=== PATIENT | male | born 1950 | race Two or more races ===

== ENCOUNTER 2024-12-29 13:26 | Emergency (ER) | payer MEDICARE, SELFPAY ==
[2024-12-29 13:27] VITALS: BMI 23.3
[2024-12-29 14:09] VITALS: BP 135/67; PULSE 64; RESP 16; TEMP 36.8; O2SAT 97
--- NOTE | 2024-12-29 14:14 | XR_ITS ---
Examination: Thoracic spine 3 views TECHNIQUE: AP lateral coned lateral upper dorsal spine 3 views Date and time: December 29, 2024 1440 hours INDICATIONS: Patient fell today with injury to the upper back, upper back pain. FINDINGS: Severe osteopenia. No acute thoracic fracture Mild to moderate diffuse thoracic disc narrowing IMPRESSION: No acute thoracic fracture
--- NOTE | 2024-12-29 14:14 | XR_ITS ---
Examination: Bilateral ribs 8 views TECHNIQUE: Right and left AP, right and left RPO, right and left LPO, right and left coned lower AP ribs total 8 views Date and time: December 29, 2024 1440 hours INDICATIONS: Patient fell today with injury to the chest, bilateral rib pain. FINDINGS: No pneumothoraces Prominent osteopenia Acute fracture right seventh rib anteriorly without displacement IMPRESSION: No pneumothorax pulmonary contusion or hemothorax Acute nondisplaced fracture right seventh rib anteriorly
--- NOTE | 2024-12-29 15:25 | PD.EDFALL ---
ED Fall Injury RME/HPI General Chief Complaint: Extremity Injury, Upper Stated Complaint: rib pain Time Seen by Provider: 12/29/24 13:38 Arrival date/time: 12/29/24 13:26 This is a case of 74-year-old male with no medical history came in in the emergency room due to right posterior rib pain and back pain 2 days status post fall on a ladder approximately 4 feet tall denies any head neck chest or abdominal injury denies loss of consciousness denies taking any blood thinner denies any numbness weakness or tingling sensation patient denies shoulder pain at the time of exam Limitations: no limitations Related Data Previous Rx's ?Medication ?Instructions ?Recorded tramadol 50 mg tablet 50 mg PO Q8H PRN pain #10 tabs 12/29/24 Allergies Allergy/AdvReac Type Severity Reaction Status Date / Time acetaminophen Allergy Unknown Unverified 12/29/24 13:30 Review of Systems Review of Systems Systems Reviewed: All systems reviewed, normal except as documented Constitutional Constitutional: Reports system reviewed and no additional complaints, except as documented and Reports as per HPI Cardiovascular Cardiovascular: Reports system reviewed and no additional complaints, except as documented and Reports as per HPI Respiratory Respiratory: Reports system reviewed and no additional complaints, except as documented and Reports as per HPI Gastrointestinal Gastrointestinal: Reports system reviewed and no additional complaints, except as documented and Reports as per HPI Musculoskeletal Musculoskeletal: Reports system reviewed and no additional complaints, except as documented, Reports as per HPI, Reports back pain and Reports other (Rib pain) Neurologic Neurologic: Reports system reviewed and no additional complaints, except as documented and Reports as per HPI Past Medical History Social History SMOKING STATUS: Never smoker ED Exam General Limitations: Present no limitations General appearance: Present alert, in no apparent distress and other (Patient is awake alert oriented not in distress nontoxic looking well-hydrated well-nourished) Head Head exam: Present atraumatic, normocephalic and normal inspection Eye Eye exam: Present normal appearance, PERRL and EOMI ENT ENT exam: Present normal exam, normal oropharynx and mucous membranes moist Neck Neck exam: Present normal inspection, full ROM, trachea midline and other (ROM intact neurovascular intact); Absent tenderness, meningismus, lymphadenopathy or thyromegaly Chest Chest inspection: Present normal inspection, symmetric chest wall rise and other (Mild tenderness on the right posterior anterior rib no crepitation no deformity no palpable rib fracture no subcutaneous emphysema ROM intact neurovascular intact) Respiratory Respiratory exam: Present normal lung sounds bilaterally; Absent respiratory distress, wheezes, stridor, accessory muscle use or prolonged expiratory phase Cardiovascular Cardiovascular exam: Present regular rate, normal rhythm and normal heart sounds; Absent bradycardia, tachycardia, irregular rhythm, systolic murmur or diastolic murmur Abdominal Exam Abdominal exam: Present soft and normal bowel sounds; Absent distention, tenderness, guarding, rebound, rigidity, diminished bowel sounds, hyperactive bowel sounds, hypoactive bowel sounds, organomegaly or trauma Extremities Exam Extremities exam: Present normal inspection and full ROM Expanded Upper Extremity Exam Shoulder exam: Present normal inspection and full ROM; Absent tenderness or swelling Arm exam: Present normal inspection and full ROM; Absent tenderness or swelling Elbow exam: Present normal inspection and full ROM; Absent tenderness or swelling Forearm/Wrist exam: Present normal inspection and full ROM; Absent tenderness or swelling Hand exam: Present normal inspection and full ROM; Absent tenderness or swelling Back Exam Back exam: Present normal inspection, full ROM and tenderness (Mild tenderness on the thoracic area no crepitation no deformity no redness no swelling ROM intact neurovascular intact); Absent CVA tenderness (R), CVA tenderness (L), muscle spasm, paraspinal tenderness, vertebral tenderness, rashes, sciatic notch tenderness (R), sciatic notch tenderness (L), straight leg raise (R) or straight leg raise (L) Neurological Exam Neurological exam: Present alert, oriented X3, CN II-XII intact, normal gait, reflexes normal and other (Awake alert oriented x 4 no focal deficit GCS 15/15 memory intact no slurring of speech no facial droop motor or sensory reflex were all normal in all extremities negative Babinski); Absent motor sensory deficit Psychiatric Psychiatric exam: Present normal affect and normal mood Skin Skin exam: Present warm, dry, intact and normal color Course Quality Measures none Orders Category Date Time Status XR ribs BI 3V Stat Exams 12/29/24 14:14 Completed XR thoracic spine 3V Stat Exams 12/29/24 14:14 Completed HYDROcodone*/APAP 5/325 [[place] 5/325] Med 12/29/24 15:22 Discontinued 1 tab PO X1 ONE Vital Signs Vital signs: Vital Signs Temperature 98.3 F 12/29/24 14:09 Pulse Rate 64 12/29/24 14:09 Respiratory Rate 16 12/29/24 14:09 Blood Pressure 135/67 H 12/29/24 14:09 Pulse Oximetry (%) 97 12/29/24 14:09 Oxygen Delivery Method Room Air 12/29/24 14:09 Oxygen saturation is 97% in room air Fall MDM Narrative MDM Narrative:: This is a case of 74-year-old male with no medical history came in in the emergency room due to right posterior rib pain and back pain 2 days status post fall on a ladder approximately 4 feet tall denies any head neck chest or abdominal injury denies loss of consciousness denies taking any blood thinner denies any numbness weakness or tingling sensation patient denies shoulder pain at the time of exam physical examination patient is awake alert oriented x 4 not in distress nontoxic looking neurological exam is normal awake alert oriented x 4 no focal deficit GCS 15/15 steady gait patient noted to have moderate tenderness on the right posterior ribs going to the right anterior rib no crepitation no deformity no contusion no hematoma no palpable rib fracture no subcutaneous emphysema patient also noted to have mild to moderate tenderness in thoracic area no crepitation no deformity no redness no swelling no paravertebral no paraspinal tenderness no CVA tenderness steady gait negative straight leg exam the rest of the physical examination is normal patient x-ray on the mid back were normal patient sustained a acute nondisplaced fracture of the seventh rib anteriorly at this point patient will be treated as rib fracture I discussed with the daughter and the patient regarding patient allergy patient and the daughter denies allergy to Tylenol thus the patient was given [place] for pain after 15 minutes I reassessed the patient no allergic reaction noted patient will be given tramadol as needed for pain patient was also given incentive spirometer for good breathing exercises they were advised to follow-up with PCP to be referred to Ortho for rib fracture return to the emergency room for any worsening persistent or any emergent concern Patient was discharged with comfortable condition walking with stable gait. Patient verbalized no further complains explained diagnosis and answered patient question. Patient is comfortable with the proposed management plan including the need to follow up with his/her primary care physician and any specialist if applicable Discussed patient for any urgent condition or worsening sx, He/She needed to go to emergency room immediately or call 911. Patient acknowledge the responsibility to follow up as instructed and to monitor her/his symptoms. For any persistence of the symptoms for more than 3-5 days return precaution advised. Discussed the result of the test and was given printed discharge instruction Patient data External records reviewed:: [facility] previous records Clinical information provided by:: patient and family Social determinants that could affect healthcare access:: none Patient has the following chronic illnesses:: None How is presenting disease/condition affected by chronic disease/condition?: no chronic disease Evaluation data The following diagnostics were reviewed and interpreted by me:: radiology exam(s) Lab and/or radiology exams considered but not ordered:: Reviewed Interpretation Summary: Reviewed Medications / Prescriptions Medications or Prescriptions considered but not ordered:: Given Medication administrations:: Medication Administration History Discontinued Medications Hydrocodone Bitart/Acetaminophen (Hydrocodone/[place] 5/325 Tablet) 1 tab PO X1 ONE Stop: 12/29/24 15:23 Given Consultations Consultation(s) initiated? (list below): No Diagnosis Fall Differential Diagnosis: other (Rib fracture) Most likely diagnosis given after review of the tests above:: Rib fracture Admission Indicated Admission indicated?: not indicated Explain why admission is indicated or not indicated:: Not indicated Admission Request Was there a request for admission?: No Admission Attestation Admission request attestation: Not indicated Disposition Plan Disposition Plan: Discharge Discharge Attestation Discharge Attestation: The patient and all family members were given an opportunity to ask questions and understood the discharge instructions. Discharge instructions specifically effects, indications for sooner follow up or return to the emergency department, and the expected course of current diagnosis. Patient condition: Stable Discharge Plan Plan Patient Disposition: HOME (Self Care) Patient condition on transfer: Stable Prescriptions/Referrals Prescriptions/Med Rec: New tramadol 50 mg tablet 50 mg PO Q8H MDD max 4 tabs per day PRN (Reason: pain) Qty: 10 0RF Referrals: Mundo Nick MD [Primary Care Provider, Pediatrics] - In 1 week Problem List Clinical Impression: Fall, Sprain of thoracic region, Closed rib fracture Patient/Caregiver Discharge Instructions Education Materials: Rib Fracture (Broken Rib), Fall Prevention Assessing Risk, ED Back Sprain/Strain, ED Rib Fracture Additional Instructions: Follow-up with your primary care physician in 2 days for reevaluation and to be referred to orthopedic surgeon for further evaluation and treatment up-to-date fracture recurrence persistent worsening symptoms or any emergent concerns such as shortness of breath chest pain call 911 or go to the nearest emergency room yes incentive spirometer for good breathing exercise and take tramadol as needed for pain ice pack every 2 hours for 30 minutes for 24 hours then alternate with warm compresses advised Print Language: Slovak Stand Alone Forms: Ling Award Info., Patient Portal Info Letter PA/CARBON PASTE MIXER OPERATOR Supervising Physician PA/CARBON PASTE MIXER OPERATOR Supervising Physician: Dr. Moreno
--- NOTE | 2024-12-29 16:42 | PC.LAC ---
Patient confirmed allergy to Tylenol, states he had allergic reaction 20 yrs ago and never taken since. Provider Aram made aware, cancel PO [place] order.
== END 2024-12-29 17:05 | disposition home or self-care (01) ==
PROVIDERS: Emergency Provider Emergency Medicine; PCP Pediatrics
DX: S22.39XA Fracture of one rib, unspecified side, initial encounter for closed fracture (principal); S23.3XXA Sprain of ligaments of thoracic spine, initial encounter; W11.XXXA Fall on and from ladder, initial encounter
CPT/HCPCS: 71110; 72072; 99283

== ENCOUNTER → 2025-01-02 | Outpatient (CLI) | payer MEDICARE, SELFPAY ==
--- NOTE | 2025-01-02 10:39 | XR_ITS ---
Examination: PA lateral chest 2 views TECHNIQUE: Upright PA lateral chest 2 views Date and time: January 02, 2025 10:40 AM, comparison 12/29/2024 INDICATIONS: Difficulty breathing chest pain after fall 12/29/2024, acute fracture right seventh rib anteriorly and rib series 12/29/2024 FINDINGS: Small right apical pneumothorax, 10-15% Nondisplaced fracture right fifth and seventh ribs Normal heart size No hemothorax IMPRESSION: Small right pneumothorax, recommend 1 day follow-up to document stability of this pneumothorax Nondisplaced fractures right fifth and seventh ribs
== END | disposition home or self-care (01) ==
DX: S22.31XA Fracture of one rib, right side, initial encounter for closed fracture (principal); W19.XXXA Unspecified fall, initial encounter; J93.9 Pneumothorax, unspecified
CPT/HCPCS: 71046

== ENCOUNTER 2025-01-07 10:18 | Emergency (ER) | payer MEDICARE, SELFPAY ==
[2025-01-07 10:38] VITALS: BP 124/68; PULSE 64; RESP 16; TEMP 37; O2SAT 97
--- NOTE | 2025-01-07 10:48 | XR_ITS ---
Examination: PA lateral chest 2 views TECHNIQUE: Upright PA lateral chest 2 views Date and time: January 07, 2025 1234 hours, comparison 01/02/2025 INDICATIONS: Right apical pneumothorax 10-15% fracture right fifth rib and seventh ribs on chest examination 01/02/2025 FINDINGS: Normal heart size. No current pneumothorax No hemothorax IMPRESSION: No current pneumothorax
--- NOTE | 2025-01-07 10:48 | EKG_ITS ---
[facility] Test Date: 2025-01-07 Pat Name: PRESTON BOWEN Department: Room: - Gender: Male [place]: : 1950 Requested By: Brad Blas (CHEMICAL PLANT MANAGER) Order Number: [id number] Reading MD: Brad Blas (CHEMICAL PLANT MANAGER) Measurements Intervals [place] Rate: 65 P: 23 RI: 190 QRS: -62 QRSD: 85 T: 47 QT: 411 QTc: 429 Interpretive Statements SINUS RHYTHM PATTERN CONSISTENT WITH PULMONARY DISEASE LEFT ANTERIOR FASCICULAR BLOCK [QRS AXIS <= -45, QR IN I, RS IN II] No previous ECG available for comparison /[id number]/[id number].pdf
--- NOTE | 2025-01-07 10:49 | PD.EDRME ---
Rapid Medical Screening Exam RME Arrival date/time: 01/07/25 10:18 75-year-old male with recent diagnosis of pneumothorax presents to the ER for complaint of shortness of breath Chief Complaint: General Adult/Misc Complain Vital signs: Vital Signs Temperature 98.6 F 01/07/25 10:38 Pulse Rate 64 01/07/25 10:38 Respiratory Rate 16 01/07/25 10:38 Blood Pressure 124/68 01/07/25 10:38 Pulse Oximetry (%) 97 01/07/25 10:38 Oxygen Delivery Method Room Air 01/07/25 10:38
[2025-01-07 11:36] LABS: Basophils # (Auto) 0.1 Thou/mm3 (0.0-0.2); Basophils % (Auto) 1 % (0-2.5); Eosinophils # (Auto) 0.4 Thou/mm3 (0.0-0.5); Eosinophils % (Auto) 4 % (0-10); Hematocrit 40.5 % (41.0-53.0); Hemoglobin 13.8 g/dL (13.5-16.0); Immature Granulocytes Auto 0.04 Thou/mm3 (0.00-0.00); Lymphocytes # (Auto) 1.3 Thou/mm3 (1.0-4.8); Lymphocytes % (Auto) 14 % (10-50); Mean Corpuscular HGB Conc 34.1 g/dl (31.0-37.0); Mean Corpuscular Hemoglobin 31.0 pg (25.0-35.0); Mean Corpuscular Volume 91 fL (80-100); Monocytes # (Auto) 0.8 Thou/mm3 (0.0-0.8); Monocytes % (Auto) 8 % (0-12); Neutrophils # (Auto) 6.8 Thou/mm3 (1.8-7.7); Neutrophils % (Auto) 73 % (37-80); Nucleated Red Blood Cell # 0.00 Thou/mm3 (0.00-0.00); Nucleated Red Blood Cell % 0 /100 WBC (0); Platelet Count 203 Thou/mm3 (140-440); RDW Standard Deviation 40.8 fL (35.1-43.9); Red Blood Count 4.45 Miln/mm3 (4.50-5.90); White Blood Count 9.4 Thou/mm3 (3.8-10.6)
[2025-01-07 11:57] LABS: Alanine Aminotransferase 13 U/L (10-49); Albumin, Serum 4.2 gm/dL (3.4-4.8); Albumin/Globulin Ratio 1.4 (1.2-2.2); Alkaline Phosphatase 104 U/L (46-116); Anion Gap 7 (7-16); Aspartate Amino Transferase 14 U/L (0-34); BUN/Creatinine Ratio 12 Ratio (12-20); Bilirubin,Total 0.9 mg/dL (0.3-1.2); Blood Urea Nitrogen 14 mg/dL (9-23); Calcium 9.8 mg/dL (8.3-10.6); Calcium (Corrected) 9.8 mg/dL (8.5-10.1); Carbon Dioxide 28.9 mMol/L (20.0-31.0); Chloride 100 mMol/L (98-107); Creatinine (Component) 1.2 mg/dL (0.6-1.3); Estimated Creatinine Clearance 44.7 mL/min (>60); Globulin 2.9 gm/dL (2.3-3.5); Osmolality,Calculated 292 (275-295); Potassium 4.6 mMol/L (3.4-5.1); Sodium 136 mMol/L (136-145); Total Protein 7.1 gm/dL (5.7-8.2); Troponin I < 0.020 ng/mL (0.0-0.045); eGFR > 60 See Note
[2025-01-07 11:59] LABS: Glucose 466 mg/dL (74-106)
--- NOTE | 2025-01-07 15:29 | EDNOTE_ITS ---
ED General RME/HPI General Chief complaint: General Adult/Misc Complain Stated complaint: SENT BY PCP FOR SCAN OF LUNGS Time Seen by Provider: 01/07/25 14:39 Arrival date/time: 01/07/25 10:18 RME / HPI RME / HPI narrative: 75-year-old male patient with significant history of diabetes mellitus, currently refusing to take insulin or p.o. diabetic medication because he is taking care of his diabetic with herbal medications, was sent to us by PCP for reevaluation regarding possible pneumothorax. Patient sustained a ground-level fall about 8 days ago came here 5 days ago and was noted to have a small pneumothorax and nondisplaced fracture of the 5th and 7th rib. Currently patient is not having any symptoms, except for tenderness to the right posterior rib cage on palpation. Denies any shortness of breath denies any fever denies any cough denies any vomiting denies any other complaints or medications taken prior to ER visit. Patient told me that before coming to the emergency room he ate 6 tortillas. Related Data Previous Rx's ?Medication ?Instructions ?Recorded tramadol 50 mg tablet 50 mg PO Q8H PRN pain #10 ta bs 12/29/24 Allergies Allergy/AdvReac Type Severity Reaction Status Date / Time acetaminophen Allergy Unknown Verified 01/07/25 10:21 Review of Systems Review of Systems Narrative Review of Systems: Review of system reviewed and within normal limits except mentioned in HPI ED Exam Narrative Physical exam: VITAL SIGNS: Reviewed. GENERAL APPEARANCE: Alert and interactive, follows commands, no acute distress, HEAD AND FACE: Non-traumatic. ENT: PERRL, pink conjunctivitis, eyelid no trauma, Mucous membrane moist. NECK: Supple, nontender, no nuchal rigidity. CHEST: Posterior rib cage tenderness, no crepitus, no paradoxical movement, no retractions. LUNGS: Clear, well ventilated, symmetric, no rales, no wheezing, no ronchi, no stridor, good breath sounds bilaterally. HEART: Regular rate, regular rhythm, no murmur, no gallops. ABDOMEN: Soft, positive bowel sounds, nondistended, no guarding, nontender, no rebound, no masses, RECTAL: Deferred. GENITAL: Deferred. NEUROLOGICAL: Gross motor function intact sensory function intact, Appropriate for age. MUSCULOSKELETAL: low back nontender, full range of motion. EXTREMITIES: Nontender, full range of motion. SKIN: Color pink, dry, no rash, no lacerations, no abrasions, no contusions. LYMPHATICS: Deferred. Course Quality Measures none Orders Category Date Time Status EKG (ED ONLY) *Do not use* NOW Care 01/07/25 10:48 Completed EKG (ED Only) Stat Exams 01/07/25 10:48 Draft XR chest 2V Stat Exams 01/07/25 10:48 Completed CBC Stat Lab 01/07/25 11:05 Completed Comprehensive Metabolic Panel Stat Lab 01/07/25 11:05 Completed Troponin I Stat Lab 01/07/25 11:05 Completed Vital Signs Vital signs: Vital Signs Temperature 98.6 F 01/07/25 10:38 Pulse Rate 64 01/07/25 10:38 Respiratory Rate 16 01/07/25 10:38 Blood Pressure 124/68 01/07/25 10:38 Pulse Oximetry (%) 97 01/07/25 10:38 Oxygen Delivery Method Room Air 01/07/25 10:38 Discharge Plan Plan Patient Disposition: HOME (Self Care) Discharge Disposition comment: stable Prescriptions/Referrals Prescriptions/Med Rec: No Action tramadol 50 mg tablet 50 mg PO Q8H MDD max 4 tabs per day PRN (Reason: pain) Qty: 10 0RF Referrals: No Primary/Family,Physician [Primary Care Provider] - In 1 week Problem List Clinical Impression: Hyperglycemia, Normal x-ray of chest Patient/Caregiver Discharge Instructions Discharge Activity: activity as tolerated Education Materials: High Blood Sugar (Hyperglycemia) Additional Instructions: Thank you for the opportunity for serving you today. You are stable for discharged . You are advised to: Follow-up with your PCP in 1 to 2 days Return to ED for worsening of symptoms Increase oral fluids Your chest x-ray today did not show any sign of pneumothorax. Print Language: Japanese Stand Alone Forms: Ling Award Info., Patient Portal Info Letter MIKE/SANDRO Supervising Physician MIKE/SANDRO Supervising Physician: MD Al[place] MDM Narrative MDM hospital course (for use when minimal MDM required): 75-year-old male patient with significant history of diabetes mellitus, currently refusing to take insulin or p.o. diabetic medication because he is taking care of his diabetic with herbal medications, was sent to us by PCP for reevaluation regarding possible pneumothorax. Patient sustained a ground-level fall about 8 days ago came here 5 days ago and was noted to have a small pneumothorax and nondisplaced fracture of the 5th and 7th rib. Currently patient is not having any symptoms, except for tenderness to the right posterior rib cage on palpation. Denies any shortness of breath denies any fever denies any cough denies any vomiting denies any other complaints or medications taken prior to ER visit. Patient told me that before coming to the emergency room he ate 6 tortillas. Chest x-ray showed no pneumothorax, no abnormality noted. Results discussed with the patient. Initially patient's blood sugar was noted to be 466, prior to discharge patient's blood sugar was noted to be 361. There is no sign of diabetic ketoacidosis. Patient refused treatment for his hyperglycemia told me that he is planning to drink the herbal medicine when he arrived home. He told me that his sugar is high because he ate a lot tortillas today. EKG showed normal sinus rhythm, ventricular rate of 65 bpm, no ST segment elevation or depression noted.
== END 2025-01-07 16:47 | disposition home or self-care (01) ==
PROVIDERS: Nurse Practitioner Primary Care; Emergency Provider Emergency Medicine
DX: E11.65 Type 2 diabetes mellitus with hyperglycemia (principal)
CPT/HCPCS: 36415; 71046; 80053; 84484; 85025; 93005; 99283